=== PATIENT | male | born 1970 | race Caucasian/White ===

== ENCOUNTER 2016-09-28 19:53 | Inpatient (IN) | payer MEDICAID ==
[~2016-09-28] VITALS: Ht 177.8 cm; Wt 147.2 kg
--- NOTE | 2016-09-28 22:37 | ER ---
ADMIT: 09/28/2016 RM/LOC: 311 [facility] MR#: [id number] [address] [address] SURAJ MARIN [address] [place] [address] Emergency Room Report SEX: M AGE: 45 : 1970 DATE: 09/28/2016 CHIEF COMPLAINT: Hematuria. HISTORY OF PRESENT ILLNESS: The patient is a 45-year-old, morbidly obese male with prior history of pyelonephritis status post cholecystectomy, paroxysmal atrial fib, tachy-praful syndrome, status post biventricular pacemaker and generator replacement, transferred by [facility] for severe hypotension, nausea, right flank pain, and hematuria that began acutely after work yesterday evening, admits to 2 beers with buddies, also admits to prior history of renal colic, but no stone manipulation, stents, or lithotripsy. PAST MEDICAL HISTORY: ALLERGIES: Penicillin. MEDICATIONS: Please see nurse's MAR. ILLNESSES: Coronary artery disease with normal heart cath in 2004, tachy- praful syndrome, hypertension, kidney infection and stones, gout, morbid obesity, status post gastric bypass, restless legs syndrome, chronic low back pain, degenerative disk disease, and GERD. Extended beta-lactamase resistant E. coli, urinary infections in the remote past, and MRSA pouch infection. OPERATIONS: Cholecystectomy, gastric bypass with Renuka-en-Y, umbilical herniorrhaphy with mesh, biventricular pacemaker and generator replacement. SOCIAL HISTORY: Smokes 1 pack per day. . Occasional alcoholic beverage. No illicit drugs. FAMILY HISTORY: Negative per chart review. REVIEW OF SYSTEMS: A 12-point review of systems negative for all other systems, illnesses, or operations except as outlined above. PHYSICAL EXAMINATION: VITAL SIGNS: Temp 100.3, pulse 110, respirations 16, BP 65/26, and SaO2 of 94% on room air. GENERAL: Toxic appearing, diaphoretic without jaundice or icterus. HEENT: Normocephalic. No evidence of epistaxis, rhinorrhea, or otorrhea. NECK: Supple without meningismus. CHEST: Clear. Breath sounds diminished without rales, rhonchi, or wheeze. HEART: Tachycardic without murmur, gallop, or edema. ABDOMEN: Obese, diffusely tender particularly right upper quadrant and right flank. Bowel sounds hypoactive. BACK: Right CVA tenderness. EXTREMITIES: No evidence of Homans sign, synovitis, or dermatitis. NEURO: EOMI. PERRLA. No evidence of drift, dysarthria, or ataxia. Gait not assessed. MENTAL STATUS: Alert, oriented, without delusions, hallucinations, or abnormal thought content. ADMIT: 09/28/2016 RM/LOC: 311 [facility] MR#: [id number] [id number] [address] SURAJ MARIN [address] [place] [address] Emergency Room Report SEX: M AGE: 45 : 1970 MEDICAL DECISION MAKING: The patient received fluid bolus 30 mL/kg on arrival with no improvement. Levophed initiated within an hour of arrival, as well as vancomycin and aztreonam. Paramedics gave Toradol 30 mg prior to arrival. Creatinine on arrival 2.2, lactic 5.0, alkaline phosphatase 212, total bilirubin 1.8, mildly elevated AST and ALT, potassium 3.5, magnesium 1.3, glucose 62, CRP 26, BN peptide 7268, lactic 5.0, procalcitonin 90.23. INR 1.32. Flu screen negative. WBC 15.3 with left shift, hemoglobin 12.6, and platelets 118. Straight cath returned 600 mL of bloody urine with small clot. UA pending. Discussed findings with Dr. Maher, who agreed to evaluate in ICU due to patient's presentation, findings, and intervention. 90 minutes of critical care is warranted. DIAGNOSES: 1. Acute pyelonephritis. 2. Severe sepsis. 3. Septic shock. 4. Morbid obesity status post Renuka-en-Y. 5. Tachy-praful syndrome status post biventricular pacemaker with generator replacement. 6. Bipolar disorder. RECOMMENDATION: Admit inpatient ICU for Dr. Maher. ADMISSION/DISCHARGE CONDITION: Critical. The patient is a full code. Benjy Cervantes MD/ modl JOB #: [id number] CC: Herminio Maher MD, Attending Physician Herminio Maher MD, Family Physician MD Júnior Hare MD
--- NOTE | 2016-09-29 13:42 | HP ---
ADMIT: 09/28/2016 RM/LOC: 311 [facility] MR#: [id number] [id number] [address] SURAJ MARIN [address] [facility] [place] [address] History and Physical SEX: M AGE: 45 : 1970 DATE OF SERVICE: CHIEF COMPLAINT: Weakness, hematuria, abdominal pain. HISTORY OF PRESENT ILLNESS: The patient is a 45-year-old gentleman, normally sees Dr. Saunders, who presented to the emergency room with less than 1 day onset of hematuria, abdominal pain, fevers, overall just not feeling well. He reports he has had kidney stones and infections in the distant past as well. Otherwise, he had been in his usual state of health. No recent fevers, chills, nausea, vomiting recent. No recent shortness of breath. Otherwise, he reports he had been eating and drinking well. No known history of kidney disease. He has been very active gentleman, he states. PAST MEDICAL HISTORY: 1. Sick sinus syndrome, status post pacemaker. 2. Depression. 3. Obesity. 4. Restless legs syndrome. 5. Gout. 6. GERD. MEDICATIONS: He is on: 1. Zaleplon 10 mg at bedtime. 2. Lamictal 200 mg. 3. Meloxicam 15 mg. 4. Temazepam 30 mg at bedtime. 5. Allopurinol 100 mg a day. 6. Mirapex 0.5 mg p.o. b.i.d. 7. Pristiq 100 mg a day. 8. Omeprazole 40 mg a day. 9. Hydrocodone 5 mg. 10.Vyvanse 30 mg a day. 11.Phentermine 30 mg a day. FAMILY HISTORY: Negative for heart disease, he states. SOCIAL HISTORY: Rare alcohol use. He lives at home with his and children. Works. Nonsmoking. REVIEW OF SYSTEMS: As per HPI. Otherwise, completely reviewed and negative. PHYSICAL EXAMINATION: VITAL SIGNS: Blood pressures initially when bringing up to the ICU is 60s systolic blood pressure 65. Currently after some more fluid resuscitation is 114/58 on Levophed drip. Pulse rate 92. He is saturating 94% on 1 L. T-max today is 100.3, down in the ER when I saw. GENERAL: He is tired, very fatigued, feeling very tired. Very difficult to keep him awake for conversation but does respond appropriately to questions and is oriented. No acute distress. HEENT: Normocephalic, atraumatic. Pupils are equal bilaterally. No icterus. ADMIT: 09/28/2016 RM/LOC: 311 [facility] MR#: [id number] [id number] [address] SURAJ MARIN [address] [place] [address] History and Physical SEX: M AGE: 45 : 1970 Dry mucous membranes. NECK: No lymphadenopathy. Soft, supple. Trachea midline. LUNGS: Clear to auscultation bilaterally. No wheezes, rales, or rhonchi. Symmetric thoracic excursion. HEART: Regular rate and rhythm. No murmurs, rubs, or gallops. ABDOMEN: Soft, mild tenderness diffusely. No guarding. No rigidity. Bowel sounds present. EXTREMITIES: No cyanosis, clubbing, or edema. MUSCULOSKELETAL: 5/5 strength in all 4 extremities. NEUROLOGICAL: No focal deficits noted. Cranial nerves II through XII are grossly intact. SKIN: Cool clammy skin throughout. Otherwise, no rashes noted. Dry. PSYCHIATRIC: He is just really kind of tired and lethargic from his illness. Otherwise seems to be of normal affect and insight of the situation. LABORATORY AND X-RAY DATA: His abdomen and pelvis CT scan overall without acute abnormalities other than some small nonobstructing calculi in the kidneys. No hydronephrosis. Chest x-ray I reviewed. He has his pacer there in place, otherwise atelectasis. No acute infiltrate. Creatinine is 2.2. Unknown baseline, presumably normal. Phos 2.7, mag 1.3, bilirubin 1.8. AST 93, white count 15.3, hemoglobin 12.6, platelets 118,000, INR 1.32. Lactic acid is 5. UA shows trace leukocytes, 1+ blood. Procalcitonin reported to be 92.23, proBNP is 7200. Influenza screen is negative. ASSESSMENT: 1. Septic shock secondary to urinary tract infection. 2. Urinary tract infection. 3. Depression. 4. Morbid obesity. 5. Acute kidney injury. 6. History of sick sinus syndrome, status post pacemaker. PLAN: He is critically ill. In the ICU. He is on Levophed getting maxed out. We will add Aerle-Synephrine. Continue large volume fluid resuscitation. He is already receiving over 4 L thus far. We will start on the next liter or more. We will expand his antibiotics. He has aztreonam already. We will add a fluoroquinolone for presumed UTI source. Add vancomycin given history of MRSA, although it was 12 years ago. The patient is critically ill. Hopefully get him turned around here. Herminio Maher MD/ gloria JOB #: [id number] CC: Herminio Maher, Attending Physician Herminio Maher, Family Physician
--- NOTE | 2016-10-02 08:28 | OR ---
ADMIT: 09/28/2016 RM/LOC: 311 [facility] MR#: [id number] [address] [address] [address] [facility] [place] [address] Operative/Delivery Room Report SEX: M AGE: 45 : 1970 SURGERY DATE: 09/28/2016 SURGEON: Yan Danielle MD PREOPERATIVE DIAGNOSIS: Sepsis. POSTOPERATIVE DIAGNOSIS: Sepsis. PROCEDURE: Right internal jugular vein central line insertion under ultrasound guidance. ANESTHESIA: Local. DESCRIPTION OF PROCEDURE: The right neck was prepped and draped in the standard surgical fashion after obtaining informed consent. Local anesthetic was used to anesthetize the skin and subcutaneous tissue of the right neck overlying the internal jugular vein. The internal jugular vein on the right side was identified with ultrasound and cannulated under ultrasound guidance with a large gauge needle. A guidewire was advanced under visualization to the superior vena cava. In a sterile Seldinger technique, a triple-lumen catheter was advanced over the guidewire and the guidewire was withdrawn. All three ports were flushed with saline after aspiration easily. The catheter was secured to the skin with silk suture. A dressing was applied. The patient tolerated the procedure in guarded condition and remained in the ICU for Dr. Maher's care. Yan Danielle MD/ modl JOB #: [id number] CC: Herminio Maher, Attending Physician Herminio Maher, Family Physician
--- NOTE | 2016-10-04 08:39 | DS ---
ADMIT: 09/28/2016 RM/LOC: 311 [facility] MR#: [id number] [id number] [facility] [address] [place] [id number] SURAJ MARIN [address] [facility] [place] [address] Discharge Summary SEX: M AGE: 45 : 1970 ADMISSION DATE: 09/28/2016 DISCHARGE DATE: 10/03/2016 CONSULTATION: Urology for Rockwell catheter placement. FINAL DIAGNOSES: 1. Septic shock secondary to E (Escherichia) coli from urinary source. 2. Urinary tract infection. 3. Depression. 4. Morbid obesity. 5. Acute kidney injury. 6. History of sick sinus syndrome. REASON FOR ADMISSION: The patient is a 45-year-old gentleman, who presented to the emergency room with fevers, acute onset of hematuria and weakness. Critically ill and hypotensive. Admitted to the ICU. HOSPITAL COURSE: The patient was admitted to the ICU. Placed on pressors. Received central line. Large volume fluid resuscitation. Very slow to improve and remained on pressors for quite some time but slowly and steadily did improve. Able to tolerate general diet. Overall, felt improved. Able to be transitioned over to an antibiotic that can be done oral. He had E coli bacteremia. Repeat blood cultures are negative. DISCHARGE INSTRUCTIONS: He will discharge to home. Follow up with me in two weeks given his recent passing of his primary care provider. His already sees somebody in our clinic. For medications please see discharge MAR which I reviewed. Notably he will be on Cipro for 10 days. Herminio Maher MD/ vdg JOB #: [id number] CC: Herminio Maher MD, Attending Physician Herminio Maher MD, Family Physician
[2016-10-04] MEDS ORDERED: VYVANSE30 MG PO (17:03)
[2016-10-04] MEDS ORDERED: [UNRECOGNIZED DRUG - OTHER] PO (17:04)
[2016-10-04] MEDS ORDERED: RESTORIL DPS30 MG PO (17:04)
[2016-10-04] MEDS ORDERED: MOBIC15 MG PO (17:04)
[2016-10-04] MEDS ORDERED: SONATA10 MG PO (17:04)
[2016-10-04] MEDS ORDERED: LAMICTAL200 MG PO (17:04)
[2016-10-04] MEDS ORDERED: PRISTIQ ER100 MG PO (17:05)
[2016-10-04] MEDS ORDERED: PRILOSEC DPS20 MG PO (17:05)
[2016-10-04] MEDS ORDERED: MIRAPEX DPS0.25 MG PO (17:05)
[2016-10-04] MEDS ORDERED: ZYLOPRIM-DPS100 MG PO (17:05)
[2016-10-04] MEDS ORDERED: CIPRO DPS500 MG PO (17:06)
[2016-10-04] MEDS ORDERED: NORCO 5-325 TA1 EACH PO (17:06)
--- NOTE | 2016-10-19 08:57 | CO ---
ADMIT: 09/28/2016 RM/LOC: 311 [facility] MR#: [id number] [address] [address] SURAJ [address]ORRIS [address] [place] [address] Consultation SEX: M AGE: 45 : 1970 DATE OF CONSULTATION: 09/30/2016 ATTENDING PHYSICIAN: Herminio Maher CONSULTING PHYSICIAN: Scot Xie MD HISTORY OF PRESENT ILLNESS: This 45-year-old gentleman developed approximately 3 to 4 days ago some mild urgency and frequency with dysuria with the development of terminal gross hematuria. Prior to the onset of these symptoms, he had had no flank pain, fever, or chills and had no nausea or vomiting. He presented to the emergency room at [facility] with the gross hematuria, lower abdominal discomfort, and dysuria. He was admitted for evaluation. He does have a history of stone disease dating back several years ago and did have a CT scan of the abdomen performed, which did reveal a small nonobstructing stone within each kidney; however, no hydronephrosis or hydroureter were noted. No suspicious inflammatory changes in the abdomen or pelvis. Did have a hiatal hernia. He states that he has been voiding with a good stream without hesitancy, straining to void, or a feeling of incomplete emptying. There has been no nocturia. PAST MEDICAL HISTORY: MEDICATIONS: 1. Zaleplon 10 mg at bedtime. 2. Lamictal 200 mg daily. 3. Meloxicam 15 mg daily. 4. Allopurinol 100 mg daily. 5. Mirapex 0.5 mg b.i.d. 6. Pristiq 100 mg daily. 7. Omeprazole 40 mg daily. 8. Hydrocodone 5 mg p.r.n. 9. Phentermine 30 mg daily. ALLERGIES: None. OPERATIONS: Pacemaker insertion. REVIEW OF SYSTEMS: He does have a history of sick sinus syndrome, for which he had a pacemaker inserted. He also has a history of obesity, depression, restless legs syndrome, gout, and GERD. FAMILY HISTORY: Negative for urologic problems. SOCIAL HISTORY: He is a nonsmoker. PHYSICAL EXAMINATION: GENERAL: This is a healthy appearing, 45-year-old in no acute distress. VITAL SIGNS: Temperature is 98.2, pulse 92, respirations 24, and blood pressure 114/58. ABDOMEN: Obese, soft, and nontender and with mild tenderness in the suprapubic region; however, no guarding or rigidity was noted. The penis is ADMIT: 09/28/2016 RM/LOC: 311 [facility] MR#: [id number] [address] [place] [id number] SURAJ MORRIS [address] [place] [address] Consultation SEX: M AGE: 45 : 1970 circumcised with normal urethral meatus. Both testes were descended and felt to be symmetric and without masses. EXTREMITIES: Full range of motion without deformity. NEUROLOGICAL: He is grossly intact. LABORATORY DATA: Sodium 143, potassium 3.1, chloride 112, CO2 of 21, BUN 13, glucose is 99, creatinine of 0.7. CBC showed a white count of 16,000 and hematocrit of 34.4. Urine culture did reveal 3 different types of gram- negative rods. Ultrasound residual 403 mL was noted. ASSESSMENT: 1. Terminal gross hematuria, which is most likely due to hemorrhagic cystitis with urinary tract infection. 2. Elevated residual urine, which may be part of the cause for his urinary tract infection. PLAN: 1. #16-[place] Rockwell catheter was passed per urethra into the bladder and connected to straight drainage. 2. I would continue Rockwell catheter drainage for at least 48 hours, at which time the Rockwell can be removed with a voiding trial. 3. He will be started on Flomax 0.4 mg daily. 4. Continue antibiotic therapy until sensitivities are available at which time, the antibiotic therapy can be tailored to his sensitivities. Thank you for allowing us to assist you in the care of Mr. Morris, and we will follow along with you. Scot Xie MD/ gloria JOB #: [id number] CC: Herminio Maher, Attending Physician Herminio Maher, Family Physician Herminio Maher MD
== END 2016-10-03 12:10 | disposition home or self-care (01) | DRG 871 ==
LOC: ER 19:53 → 3ICU 21:00
PROVIDERS: ADMIT Internal Medicine
PROC: 02H633Z Insertion of Infusion Device into Right Atrium, Percutaneous Approach (ICD-10-PCS; principal; 2016-09-28)
DX: A41.51 Sepsis due to Escherichia coli [E. coli] (principal); R65.21 Severe sepsis with septic shock; N17.9 Acute kidney failure, unspecified; N10 Acute pyelonephritis; I48.0 Paroxysmal atrial fibrillation; G25.81 Restless legs syndrome; Z68.41 Body mass index [BMI] 40.0-44.9, adult; N30.91 Cystitis, unspecified with hematuria; E66.01 Morbid (severe) obesity due to excess calories; M10.9 Gout, unspecified; E87.6 Hypokalemia; Z16.12 Extended spectrum beta lactamase (ESBL) resistance; K44.9 Diaphragmatic hernia without obstruction or gangrene; I25.10 Atherosclerotic heart disease of native coronary artery without angina pectoris; I10 Essential (primary) hypertension; F32.9 Major depressive disorder, single episode, unspecified; M54.5 Low back pain; K21.9 Gastro-esophageal reflux disease without esophagitis; F17.210 Nicotine dependence, cigarettes, uncomplicated; F31.9 Bipolar disorder, unspecified; Z95.810 Presence of automatic (implantable) cardiac defibrillator; Z98.84 Bariatric surgery status; Z87.440 Personal history of urinary (tract) infections; Z98.0 Intestinal bypass and anastomosis status; Z86.14 Personal history of Methicillin resistant Staphylococcus aureus infection